=== PATIENT | female | born 1990 | race Caucasian/White ===

== ENCOUNTER 2019-03-19 03:57 | Emergency (ER) | payer BC ==
[~2019-03-19] VITALS: Ht 157.5 cm; Wt 57.2 kg
[2019-03-19 05:07] LABS: UA SPECIFIC GRAVITY <=1.005 (1.005-1.035); microscopic required? YES; urine erythrocyte NEGATIVE (NEGATIVE)
[2019-03-19 06:02] VITALS: BP 125/89
== END 2019-03-19 06:02 | disposition home or self-care (01) ==
LOC: ED 03:57
PROVIDERS: Emergency Medicine
DX: N39.0 Urinary tract infection, site not specified (principal); R06.02 Shortness of breath
CPT/HCPCS: J1885; Q0092